=== PATIENT | female | born 1970 | race Caucasian/White ===

== ENCOUNTER 2021-10-18 11:41 | Emergency (ER) | payer SELFPAY ==
--- NOTE | 2021-10-18 12:00 | NUR ---
Called NO response- Mary
--- NOTE | 2021-10-18 12:30 | NUR ---
Called NO response- phuc
--- NOTE | 2021-10-18 12:49 | NUR ---
Called NO response- phuc
== END 2021-10-18 12:49 | disposition home or self-care (01) ==
LOC: ER 11:45
DX: Z53.21 Procedure and treatment not carried out due to patient leaving prior to being seen by health care provider (principal)

== ENCOUNTER 2021-10-18 13:04 | Emergency (ER) | payer SELFPAY ==
[~2021-10-18] VITALS: Ht 170.2 cm; Wt 50.8 kg
--- NOTE | 2021-10-18 13:47 | NUR ---
Called. No Response
[2021-10-18 14:15] VITALS: BP 130/78
== END 2021-10-18 19:50 | disposition home or self-care (01) ==
LOC: ER 13:10
DX: S01.01XA Laceration without foreign body of scalp, initial encounter (principal); Z88.0 Allergy status to penicillin; X58.XXXA Exposure to other specified factors, initial encounter; Y93.89 Activity, other specified; Y92.89 Other specified places as the place of occurrence of the external cause; Y99.8 Other external cause status

== ENCOUNTER 2021-10-22 11:10 | Emergency (ER) | payer SELFPAY ==
[~2021-10-22] VITALS: Ht 170.2 cm; Wt 50.8 kg
--- NOTE | 2021-10-22 11:27 | NUR ---
called for triage not in the waiting.
[2021-10-22 11:37] VITALS: BP 115/67
--- NOTE | 2021-10-22 11:37 | NUR ---
SARAH stiches and head lyndon removal x 4 days
--- NOTE | 2021-10-22 12:19 | NUR ---
Patient discharged to home in stable condition. Written and verbal after care instructions given. Patient verbalizes understanding of instruction.
== END 2021-10-22 12:19 | disposition home or self-care (01) ==
LOC: ER 11:10
DX: S01.81XD Laceration without foreign body of other part of head, subsequent encounter (principal); S41.111D Laceration without foreign body of right upper arm, subsequent encounter; X58.XXXD Exposure to other specified factors, subsequent encounter; Z88.0 Allergy status to penicillin
CPT/HCPCS: 99281; A6403

== ENCOUNTER 2021-10-31 14:55 | Emergency (ER) | payer SELFPAY ==
[~2021-10-31] VITALS: Ht 170.2 cm; Wt 49.9 kg
[2021-10-31] MEDS ORDERED: HYDR-4209 PO (16:41)
[2021-10-31 17:08] VITALS: BP 120/68
--- NOTE | 2021-10-31 17:10 | NUR ---
Patient discharged to home in stable condition. Written and verbal after care instructions given. Patient verbalizes understanding of instruction.
== END 2021-10-31 17:10 | disposition home or self-care (01) ==
LOC: ER 14:57
DX: S22.32XA Fracture of one rib, left side, initial encounter for closed fracture (principal); S22.31XA Fracture of one rib, right side, initial encounter for closed fracture; Z88.0 Allergy status to penicillin; V49.69XA Unspecified car occupant injured in collision with other motor vehicles in traffic accident, initial encounter; Y93.89 Activity, other specified; Y92.413 State road as the place of occurrence of the external cause; Y99.8 Other external cause status
CPT/HCPCS: 71250-TC